=== PATIENT | male | born 1990 | race African-American/Black ===

== ENCOUNTER 2016-03-11 13:36 | Emergency (ER) | payer OTHER ==
[2016-03-11 13:42] VITALS: TEMP 98.5; BMI 28.1
[2016-03-11] MEDS ORDERED: SODIUM CHLORIDE 1,000 ML IV STA ×3 (14:02→17:15)
[2016-03-11 14:12] LABS: BASOPHIL 1.2 % (0-2.0); EOSINOPHIL 1.8 % (0-4.5); MCH 30.6 pg (25.7-33.7); MCHC 34.1 g/dl (32.0-35.9); MEAN CELL VOLUME 89.7 fl (80-96); MEAN PLT VOLUME 7.6 fl (7.5-11.1); PLATELET COUNT 343 K/MM3 (134-434); RDW 13.4 % (11.9-15.9); WHITE BLOOD COUNT 9.2 K/mm3 (4.0-10.0)
[2016-03-11 14:44] LABS: INR 1.05 (0.82-1.09); PROTHROMBIN TIME (PATIENT) 11.6 SEC (9.98-11.88)
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
[2016-03-11 15:00] LABS: ANION GAP 11 (8-16); BILIRUBIN,TOTAL 0.5 mg/dL (0.2-1.0); CALCIUM 9.2 mg/dL (8.5-10.1); CO2 27 mmol/L (21-32); CREATININE 1.1 mg/dL (0.7-1.3); GLUCOSE,RANDOM 85 mg/dL (74-106); SGPT/ALT 32 U/L (12-78); TOT PROT 7.8 g/dl (6.4-8.2)
[2016-03-11 15:09] LABS: URINE APPEARANCE CLEAR; URINE BILIRUBIN NEGATIVE (NEGATIVE); URINE BLOOD NEGATIVE (NEGATIVE); URINE COLOR YELLOW; URINE GLUCOSE (UA) NEGATIVE (NEGATIVE); URINE KETONE NEGATIVE (NEGATIVE); URINE LEUK ESTERASE NEGATIVE (NEGATIVE); URINE NITRITE NEGATIVE (NEGATIVE); URINE PROTEIN NEGATIVE (NEGATIVE); URINE UROBILINOGEN NEGATIVE E.U./dl (0.2-1.0)
[2016-03-11 15:13] LABS: ALK PHOS 80 U/L (45-117); TROPONIN I < 0.02 ng/ml (0.00-0.05)
[2016-03-11 15:14] LABS: SGOT/AST 41 U/L (15-37)
[2016-03-11] MEDS ORDERED: IBUPROFEN 600 MG TABLET (FP) PO ONE ×2 (17:27→17:33)
--- NOTE | 2016-03-11 17:35 | EKG ---
Test Reason : Blood Pressure : / mmHG Vent. Rate : 066 BPM Atrial Rate : 066 BPM P-R Int : 128 ms QRS Dur : 090 ms QT Int : 350 ms P-R-T Axes : 034 058 045 degrees QTc Int : 366 ms NORMAL SINUS RHYTHM ST ELEVATION, CONSIDER EARLY REPOLARIZATION BORDERLINE ECG NO PREVIOUS ECGS AVAILABLE Confirmed by DIONE SESAY, LENCHO ([id number]) on 03/11/2016 5:35:30 PM Referred By: Confirmed By:LENCHO PARHAM MD
[2016-03-11 18:12] LABS: TROPONIN I < 0.02 ng/ml (0.00-0.05)
[2016-03-11 18:16] VITALS: BP 123/81; PULSE 65
--- NOTE | 2016-03-12 10:37 | EKG ---
Test Reason : Blood Pressure : / mmHG Vent. Rate : 058 BPM Atrial Rate : 058 BPM P-R Int : 126 ms QRS Dur : 092 ms QT Int : 384 ms P-R-T Axes : 029 062 052 degrees QTc Int : 376 ms SINUS BRADYCARDIA POSSIBLE LATERAL INFARCT , AGE UNDETERMINED EARLY REPOLARIZATION ABNORMAL ECG Confirmed by GISELL JAIME MD ([id number]) on 03/12/2016 10:36:56 AM Referred By: Confirmed By:GISELL JAIME MD
== END 2016-03-11 18:35 | disposition home or self-care (01) ==
LOC: JER 13:36
PROC: 3E0337Z Introduction of Electrolytic and Water Balance Substance into Peripheral Vein, Percutaneous Approach (ICD-10-PCS; principal; 2016-03-11)
DX: S21.112A Laceration without foreign body of left front wall of thorax without penetration into thoracic cavity, initial encounter (principal); X99.1XXA Assault by knife, initial encounter; Y93.89 Activity, other specified; Y92.414 Local residential or business street as the place of occurrence of the external cause; Y99.8 Other external cause status; Y07.9 Unspecified perpetrator of maltreatment and neglect
CPT/HCPCS: 36415; 71010-TC; 71250-TC; 80053; 81003; 82550; 82553; 84484; 85025; 85610; 86850; 86900; 86901; 93005; 93010; 99285-25

== ENCOUNTER 2016-07-24 07:18 | Emergency (ER) | payer OTHER ==
[2016-07-24 07:22] VITALS: BMI 28.1
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
[2016-07-24] MEDS ORDERED: OXYCODONE/APAP 5/325MG COMBO TABLET PO ONE (07:48)
[2016-07-24] MEDS ORDERED: AMOX TR/POT CLAV 875MG/125MG TABLETS (FP) PO ONE (07:48)
[2016-07-24] MEDS ORDERED: AMOX TR/POT CLAV 875MG/125MG TABLETS (FP) ONE (07:51)
[2016-07-24] MEDS ORDERED: OXYCODONE/APAP 5/325MG COMBO TABLET ONE (07:51)
[2016-07-24 08:18] VITALS: BP 148/88; PULSE 88; TEMP 98.7
== END 2016-07-24 08:12 | disposition home or self-care (01) ==
LOC: JER 07:18
DX: K02.9 Dental caries, unspecified (principal); F16.20 Hallucinogen dependence, uncomplicated; F12.10 Cannabis abuse, uncomplicated; F17.210 Nicotine dependence, cigarettes, uncomplicated; F43.10 Post-traumatic stress disorder, unspecified
CPT/HCPCS: 99283-25

== ENCOUNTER 2017-03-06 16:23 | Emergency (ER) | payer OTHER ==
[2017-03-06 16:37] VITALS: BP 112/66; BMI 26.4
--- NOTE | 2017-03-06 17:27 | PDOC ---
History of Present Illness - General Chief Complaint: Respiratory Stated Complaint: COLD SYMPTOMS History Source: Patient Exam Limitations: No Limitations - History of Present Illness Initial Comments: 03/06/17 17:25 26-year-old male presents to the emergency room with a fever of 103 and general body aches with a headache. He denies any upper respiratory infection or any runny nose. He does have a sore throat. 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) CVA: No COPD: No CHF: No Dementia: No Diabetes: No GI Disorders: No Disorders: No HTN: No Hypercholesterolemia: No Kidney Stones: No Liver Disease: No Seizures: No Thyroid Disease: No - Reproductive History Testicular Surgery: No - Immunization History Immunization Up to Date: Yes - Suicide/Smoking/Psychosocial Hx Smoking History: Never smoked Have you smoked in the past 12 months: Yes Number of Cigarettes Smoked Daily: 2 'Breaking Loose' booklet given: 03/11/16 Hx Alcohol Use: No Drug/Substance Use Hx: No Substance Use Type: None Hx Substance Use Treatment: Yes (ATS) Respiratory Specific PMHX - Complaint Specific PMHX TB (Tuberculosis): No Review of Systems - Review of Systems Able to Perform ROS?: Yes Comments:: 03/06/17 17:26 General statement: general illness Hematology: neg history of bleeding/blood thinners Skin: Neg for lesions, rash, bruising. HEENT: Neg symptoms Respiratory: Neg SOB or difficulty in breathing Cardiac: Neg chest pain GI: Neg pain, n/v : Neg problems on voiding MS: Neg for joint pain/stiffness, no edema Neuro: Neg for LOC, weakness, Endocrine: Neg for excess thirst/hunger, cold/heat intolerance, excess sweating Allergies: + for allergies *Physical Exam - Vital Signs Last Vital Signs Temp Pulse Resp BP Pulse Ox 103 F H 129 H 20 112/66 99 03/06/17 16:34 03/06/17 16:34 03/06/17 16:34 03/06/17 16:34 03/06/17 16:34 - Physical Exam Comments: 03/06/17 17:26 General Appearance: This ill appearing V/S: hemodynamically stable, febrile Skin: WNL of pt's skin color, no signs of pallor, mottling, cyanosis Head:symmetrical Eyes: EOM's intact, PERRLA Ears: denies pain Nose: patent Throat: lips, teeth, gums, tongue, buccal mucos pink and moist Lungs: Chest symmetry equal. Cap refill <3 seconds. Lung sounds clear Cardiac: PMI at R 4MCL space, pos S1 and S2, regular rate. Abdomen: Soft, round, nontender : Not observed Muscularskeletal: Gait steady, ambulated in to ER, no edema +PMS Neuro: AAOx3, cognitively intact, speech clear and appropriate. Medical Decision Making - Medical Decision Making 03/06/17 17:27 Patient initially seen and examined. Patient is found to have fever symptoms. He was given Tylenol out in triage and now he is sweating from the fever breaking. Swabs for influenza 03/06/17 18:17 This is negative for flu. He states that his throat pain has gone away and his chills and fever have gone away. I'm suspicious for pharyngitis possible strep and we'll treat him with a Z-Júnior. *DC/Admit/Observation/Transfer Diagnosis at time of Disposition: Strep throat - Discharge Dispostion Disposition: HOME Condition at time of disposition: Stable Admit: No - Referrals - Patient Instructions Printed Discharge Instructions: How to Take an Oral Temperature Additional Instructions: Discharge instructions 1. Please follow up with your primary physician within the next few days and explain that you have been seen here in the Emergency Room. 2. If you experience any worsening of symptoms, please return to the ER 3. Rest, swap out your toothbrush and take antibiotics a prescribed. 4. Drink plenty of water - Post Discharge Activity
[2017-03-06 18:28] VITALS: PULSE 90; TEMP 99.3
== END 2017-03-06 18:24 | disposition home or self-care (01) ==
LOC: JERFT 16:23
DX: J02.0 Streptococcal pharyngitis (principal); B95.5 Unspecified streptococcus as the cause of diseases classified elsewhere
CPT/HCPCS: 87804; 99281-25